=== PATIENT | female | born 1950 | race Caucasian/White ===

== ENCOUNTER 2021-10-05 09:48 | Inpatient (IN) | payer MEDICARE, OTHER ==
[~2021-10-05] VITALS: Ht 162.6 cm; Wt 63.5 kg
[2021-10-05 11:38] LABS: RED BLOOD COUNT 4.56 M/UL (4.00-5.10); WHITE BLOOD COUNT 10.1 K/UL (4.5-11.0)
[2021-10-05 12:04] LABS: BUN/CREATININE RATIO 29 (0-10)
[2021-10-05] MEDS ORDERED: ATORVASTATIN CA40 MG PO (16:04)
[2021-10-05] MEDS ORDERED: CETIRIZINE HCL10 MG PO (16:05)
[2021-10-05] MEDS ORDERED: FISH OIL 1,0001 EAC3 PO (16:06)
[2021-10-05] MEDS ORDERED: OMEPRAZOLE20 MG PO (16:07)
[2021-10-05] MEDS ORDERED: POTASSIUM CHLO20 ME1 PO (16:08)
[2021-10-05] MEDS ORDERED: TRAZODONE HCL50 MG PO (16:09)
[2021-10-05] MEDS ORDERED: GABAPENTIN800 MG PO (16:09)
[2021-10-05] MEDS ORDERED: HYDROCODON-ACE1 EAC2 PO (16:10)
[2021-10-05] MEDS ORDERED: LOSARTAN POTASS25 MG PO (16:11)
[2021-10-05] MEDS ORDERED: HYDROCHLOROTHIA25 MG PO (16:12)
[2021-10-05] MEDS ORDERED: TRADJENTA5 MG PO (16:12)
[2021-10-05] MEDS ORDERED: VITAMIN D21250 MCG PO (16:13)
[2021-10-05] MEDS ORDERED: METFORMIN HCL500 MG PO (16:14)
[2021-10-05] MEDS ORDERED: ADVAIR 250-501 EACH INH (16:29)
[2021-10-05] MEDS ORDERED: PROVENTIL HFA6.7 GM INH (16:30)
[2021-10-06 09:32] LABS: RED BLOOD COUNT 3.82 M/UL (4.00-5.10); WHITE BLOOD COUNT 7.4 K/UL (4.5-11.0)
[2021-10-06 09:33] LABS: HEMOGLOBIN 12.4 gm/dl (12.3-15.3)
[2021-10-06 09:54] LABS: BUN/CREATININE RATIO 29 (0-10)
[2021-10-07 02:13] LABS: HEMOGLOBIN 12.6 gm/dl (12.3-15.3); RED BLOOD COUNT 3.89 M/UL (4.00-5.10)
[2021-10-07 02:17] LABS: WHITE BLOOD COUNT 3.8 K/UL (4.5-11.0)
[2021-10-07 02:27] LABS: BUN/CREATININE RATIO 30 (0-10)
[2021-10-08 06:23] LABS: HEMOGLOBIN 13.3 gm/dl (12.3-15.3); RED BLOOD COUNT 4.11 M/UL (4.00-5.10)
[2021-10-08 06:48] LABS: BUN/CREATININE RATIO 34 (0-10)
== END 2021-10-08 16:14 | disposition home or self-care (01) | DRG 193 ==
LOC: ER1 09:48 → M/S 14:55 → EDBD 14:55 → CDU 14:55 → M/S 17:17
PROVIDERS: Internal Medicine; Nurse Practitioner; Physician Assistant; ADMIT Internal Medicine
DX: J10.1 Influenza due to other identified influenza virus with other respiratory manifestations (principal); J96.01 Acute respiratory failure with hypoxia; G93.41 Metabolic encephalopathy; E87.3 Alkalosis; I10 Essential (primary) hypertension; E78.5 Hyperlipidemia, unspecified; R51.9 Headache, unspecified; F03.90 Unspecified dementia, unspecified severity, without behavioral disturbance, psychotic disturbance, mood disturbance, and anxiety; E87.6 Hypokalemia; E11.65 Type 2 diabetes mellitus with hyperglycemia; Z20.822 Contact with and (suspected) exposure to COVID-19; H90.5 Unspecified sensorineural hearing loss; E86.0 Dehydration; F17.210 Nicotine dependence, cigarettes, uncomplicated; Z82.3 Family history of stroke; Z79.4 Long term (current) use of insulin; Z79.899 Other long term (current) drug therapy; Z79.84 Long term (current) use of oral hypoglycemic drugs
CPT/HCPCS: 0240U; 36415; 36600; 51702; 70450; 71045; 80048; 80053; 80076; 80307; 81001; 82009; 82140; 82150; 82550; 82553; 82803; 82962; 83036; 83605; 83690; 83735; 83880; 84132; 84439; 84443; 84484; 85025; 85027; 85610; 85730; 87040; 87086; 93005; 94640; 94664; 94760; 99285; G0480; J0692; Q9967

== ENCOUNTER 2021-10-12 12:49 | Observation (INO) | payer MEDICARE, OTHER ==
[~2021-10-12 12:49] MED LIST: ADVAIR 250-501 EACH INH; ATORVASTATIN CA40 MG PO; CETIRIZINE HCL10 MG PO; FISH OIL 1,0001 EAC3 PO; GABAPENTIN800 MG PO; HYDROCHLOROTHIA25 MG PO; HYDROCODON-ACE1 EAC2 PO; LOSARTAN POTASS25 MG PO; METFORMIN HCL500 MG PO; OMEPRAZOLE20 MG PO; POTASSIUM CHLO20 ME1 PO; PROVENTIL HFA6.7 GM INH; TRADJENTA5 MG PO; TRAZODONE HCL50 MG PO; VITAMIN D21250 MCG PO
[2021-10-12 15:27] LABS: RED BLOOD COUNT 4.59 M/UL (4.00-5.10); WHITE BLOOD COUNT 8.7 K/UL (4.5-11.0)
[2021-10-12 15:39] LABS: BUN/CREATININE RATIO 78 (0-10)
[2021-10-12 20:53] LABS: BUN/CREATININE RATIO 47 (0-10)
[2021-10-13 02:54] LABS: HEMOGLOBIN 13.4 gm/dl (12.3-15.3); RED BLOOD COUNT 4.11 M/UL (4.00-5.10); WHITE BLOOD COUNT 8.2 K/UL (4.5-11.0)
[2021-10-13 03:04] LABS: BUN/CREATININE RATIO 51 (0-10)
[2021-10-14 04:31] LABS: HEMOGLOBIN 13.5 gm/dl (12.3-15.3); RED BLOOD COUNT 4.19 M/UL (4.00-5.10)
[2021-10-14 05:09] LABS: BUN/CREATININE RATIO 32 (0-10)
[2021-10-14] MEDS ORDERED: CEFUROXIME250 MG PO (11:49)
[2021-10-14 15:30] LABS: BUN/CREATININE RATIO 24 (0-10)
[2021-10-14] MEDS ORDERED: MAGNESIUM400 M2 PO (16:20)
== END 2021-10-14 20:49 | disposition home health service (06) ==
LOC: ER1 12:49 → MED SURG 4 19:18 → CDU 19:18 → MED SURG 4 20:40
PROVIDERS: Preventive Medicine Occupational Medicine; Psychiatry & Neurology Neurology; ADMIT Internal Medicine
DX: G93.41 Metabolic encephalopathy (principal); E87.6 Hypokalemia; E86.0 Dehydration; N39.0 Urinary tract infection, site not specified; I10 Essential (primary) hypertension; E78.5 Hyperlipidemia, unspecified; E11.9 Type 2 diabetes mellitus without complications; E87.2 Acidosis; F17.210 Nicotine dependence, cigarettes, uncomplicated; Z20.822 Contact with and (suspected) exposure to COVID-19; Z79.84 Long term (current) use of oral hypoglycemic drugs; Z79.899 Other long term (current) drug therapy
CPT/HCPCS: 0240U; 36415; 36600; 70450; 70551; 71045; 80048; 80053; 80307; 81001; 82009; 82140; 82550; 82553; 82607; 82652; 82746; 82803; 82962; 83605; 83690; 83735; 83880; 84132; 84439; 84443; 84484; 85025; 85027; 85379; 85652; 86140; 87040; 87086; 94760; 96372; 96374; 96376; 97110-GP-CQ; 97116-GP-CQ; 97162; 97167; 97530; 99285; G0378; G0480; J0696; J1650; J3475; J3480; J3486; J7030; Q9967

== ENCOUNTER 2021-10-27 22:24 | Inpatient (IN) | payer MEDICARE, OTHER ==
[~2021-10-27] VITALS: Ht 170.2 cm; Wt 68.0 kg
[~2021-10-27 22:24] MED LIST changes: +CEFUROXIME250 MG PO; +MAGNESIUM400 M2 PO
[2021-10-27 23:35] LABS: RED BLOOD COUNT 4.25 M/UL (4.00-5.10)
[2021-10-28 06:57] LABS: HEMOGLOBIN 13.1 gm/dl (12.3-15.3); RED BLOOD COUNT 4.14 M/UL (4.00-5.10); WHITE BLOOD COUNT 17.6 K/UL (4.5-11.0)
[2021-10-28] MEDS ORDERED: IBU600 MG PO (10:10)
[2021-10-28] MEDS ORDERED: ALBUTEROL2.5 MG/3 M INH (10:11)
[2021-10-28] MEDS ORDERED: MACROBID 100 M100 M1 PO (10:11)
[2021-10-28] MEDS ORDERED: COZAAR25 MG PO (10:11)
[2021-10-28] MEDS ORDERED: TRAZODONE HCL50 MG PO (10:12)
[2021-10-28] MEDS ORDERED: TRADJENTA5 MG PO (10:12)
--- NOTE | 2021-10-28 16:40 | NUR ---
PT HAD NOT VOIDED TODAY, BLADDER SCANNED WITH 740ML READING. DR ANN CALLED ORDERED TO INSERT MELENDEZ. 16 FR INSERTED WITH 1250 DARK YELLOW URINE OUT. PT TOLERATED PROCEDURE WELL.
[2021-10-29 07:04] LABS: HEMOGLOBIN 14.1 gm/dl (12.3-15.3); RED BLOOD COUNT 4.37 M/UL (4.00-5.10)
[2021-10-29 07:07] LABS: WHITE BLOOD COUNT 10.9 K/UL (4.5-11.0)
[2021-10-29 07:55] LABS: BUN/CREATININE RATIO 52 (0-10)
[2021-10-30 07:04] LABS: HEMOGLOBIN 13.3 gm/dl (12.3-15.3); RED BLOOD COUNT 4.23 M/UL (4.00-5.10); WHITE BLOOD COUNT 8.3 K/UL (4.5-11.0)
[2021-10-30 07:39] LABS: BUN/CREATININE RATIO 32 (0-10)
[2021-10-31 05:19] LABS: HEMOGLOBIN 13.5 gm/dl (12.3-15.3); RED BLOOD COUNT 4.11 M/UL (4.00-5.10); WHITE BLOOD COUNT 7.4 K/UL (4.5-11.0)
[2021-10-31 07:02] LABS: BUN/CREATININE RATIO 26 (0-10)
[2021-11-01 06:47] LABS: HEMOGLOBIN 14.1 gm/dl (12.3-15.3); RED BLOOD COUNT 4.38 M/UL (4.00-5.10); WHITE BLOOD COUNT 8.6 K/UL (4.5-11.0)
[2021-11-01 07:45] LABS: BUN/CREATININE RATIO 34 (0-10)
[2021-11-02] MEDS ORDERED: MAGNESIUM400 M2 PO (16:48)
[2021-11-02] MEDS ORDERED: THERA-M CAPLET1 EACH PO (16:48)
== END 2021-11-03 15:24 | disposition home or self-care (01) | DRG 682 ==
LOC: ER1 22:24 → CDU 10-28 02:03 → MED SURG 4 10-28 02:03
PROVIDERS: Internal Medicine; Student in an Organized Health Care Education/Training Program; ADMIT Internal Medicine
DX: N17.9 Acute kidney failure, unspecified (principal); G93.41 Metabolic encephalopathy; I21.A1 Myocardial infarction type 2; M62.82 Rhabdomyolysis; N39.0 Urinary tract infection, site not specified; I50.32 Chronic diastolic (congestive) heart failure; E87.0 Hyperosmolality and hypernatremia; E11.9 Type 2 diabetes mellitus without complications; E87.6 Hypokalemia; E83.42 Hypomagnesemia; K52.9 Noninfective gastroenteritis and colitis, unspecified; F17.210 Nicotine dependence, cigarettes, uncomplicated; K29.80 Duodenitis without bleeding; I27.20 Pulmonary hypertension, unspecified; I11.0 Hypertensive heart disease with heart failure; R33.8 Other retention of urine; D75.89 Other specified diseases of blood and blood-forming organs; E86.0 Dehydration; I35.0 Nonrheumatic aortic (valve) stenosis; E78.5 Hyperlipidemia, unspecified; I10 Essential (primary) hypertension; F03.90 Unspecified dementia, unspecified severity, without behavioral disturbance, psychotic disturbance, mood disturbance, and anxiety; Z98.890 Other specified postprocedural states; Z82.3 Family history of stroke; Z79.899 Other long term (current) drug therapy; Z79.84 Long term (current) use of oral hypoglycemic drugs; Z79.82 Long term (current) use of aspirin
CPT/HCPCS: ECHO; 36415; 70450; 71045; 80048; 80053; 81001; 82550; 82553; 82962; 83605; 83735; 83880; 84100; 84132; 84484; 85025; 85027; 87040; 87086; 93005; 93306; 94640; 94664; 94760; 97161; 97166; 97530; 99285; J0360; J0696; J1644; J3475; J7030; Q9967

== ENCOUNTER 2021-11-17 05:57 | Inpatient (IN) | payer MEDICARE, OTHER ==
[~2021-11-17] VITALS: Ht 162.6 cm; Wt 56.7 kg
[~2021-11-17 05:57] MED LIST changes: +ALBUTEROL2.5 MG/3 M INH; +COZAAR25 MG PO; +IBU600 MG PO; +MACROBID 100 M100 M1 PO; +THERA-M CAPLET1 EACH PO
[2021-11-17 08:44] LABS: HEMOGLOBIN 14.5 gm/dl (12.3-15.3); RED BLOOD COUNT 4.43 M/UL (4.00-5.10); WHITE BLOOD COUNT 8.5 K/UL (4.5-11.0)
[2021-11-17 09:07] LABS: BUN/CREATININE RATIO 34 (0-10)
[2021-11-18 04:10] LABS: HEMOGLOBIN 13.1 gm/dl (12.3-15.3); RED BLOOD COUNT 4.06 M/UL (4.00-5.10); WHITE BLOOD COUNT 7.7 K/UL (4.5-11.0)
[2021-11-18 04:27] LABS: BUN/CREATININE RATIO 42 (0-10)
[2021-11-19 03:15] LABS: RED BLOOD COUNT 3.67 M/UL (4.00-5.10)
[2021-11-19 03:47] LABS: BUN/CREATININE RATIO 43 (0-10)
[2021-11-20 03:26] LABS: HEMOGLOBIN 10.9 gm/dl (12.3-15.3); RED BLOOD COUNT 3.35 M/UL (4.00-5.10); WHITE BLOOD COUNT 7.1 K/UL (4.5-11.0)
[2021-11-20 03:52] LABS: BUN/CREATININE RATIO 51 (0-10)
[2021-11-21 06:37] LABS: HEMOGLOBIN 11.4 gm/dl (12.3-15.3); RED BLOOD COUNT 3.5 M/UL (4.00-5.10); WHITE BLOOD COUNT 5.7 K/UL (4.5-11.0)
[2021-11-21 07:34] LABS: BUN/CREATININE RATIO 47 (0-10)
[2021-11-22 02:37] LABS: HEMOGLOBIN 11.4 gm/dl (12.3-15.3); RED BLOOD COUNT 3.53 M/UL (4.00-5.10); WHITE BLOOD COUNT 5.6 K/UL (4.5-11.0)
[2021-11-22 03:37] LABS: BUN/CREATININE RATIO 49 (0-10)
[2021-11-23 04:10] LABS: BUN/CREATININE RATIO 51 (0-10)
[2021-11-23 04:44] LABS: HEMOGLOBIN 12.1 gm/dl (12.3-15.3); RED BLOOD COUNT 3.73 M/UL (4.00-5.10); WHITE BLOOD COUNT 6.5 K/UL (4.5-11.0)
[2021-11-24 12:19] LABS: HEMOGLOBIN 13.1 gm/dl (12.3-15.3); RED BLOOD COUNT 4.04 M/UL (4.00-5.10)
[2021-11-24 12:21] LABS: WHITE BLOOD COUNT 8.4 K/UL (4.5-11.0)
[2021-11-24 12:46] LABS: BUN/CREATININE RATIO 60 (0-10)
[2021-11-25 03:34] LABS: HEMOGLOBIN 12.2 gm/dl (12.3-15.3); RED BLOOD COUNT 3.79 M/UL (4.00-5.10); WHITE BLOOD COUNT 7.9 K/UL (4.5-11.0)
[2021-11-25 04:06] LABS: BUN/CREATININE RATIO 72 (0-10)
[2021-11-25] MEDS ORDERED: ASPIRIN81 MG PO (11:19)
[2021-11-25] MEDS ORDERED: MIRALAX17 GM PO (11:38)
[2021-11-25] MEDS ORDERED: ARICEPT5 MG PO (11:38)
[2021-11-25] MEDS ORDERED: SENNA PLUS 8.61 EACH PO (11:38)
[2021-11-25] MEDS ORDERED: ENOXAPARIN40 MG/0.4 SC ×2 (11:38→11:54)
[2021-11-25] MEDS ORDERED: ROXICODONE TAB 55 MG PO (11:38)
[2021-11-25] MEDS ORDERED: ACETAMINOPHEN500 MG PO (11:38)
[2021-11-25] MEDS ORDERED: OMNICEF 300 MG300 MG PO (11:38)
[2021-11-25] MEDS ORDERED: MACROBID 100 M100 M1 PO (11:45)
[2021-11-25] MEDS ORDERED: MEGACE 400400 MG/10 PO (11:49)
[2021-11-25] MEDS ORDERED: HYDRALAZINE HCL25 MG PO ×2 (12:04→12:09)
[2021-11-25] MEDS ORDERED: ZOFRAN 4 MG TAB4 MG PO (12:40)
== END 2021-11-25 17:59 | disposition home or self-care (01) | DRG 480 ==
LOC: ER1 05:57 → M/S 08:21 → CDU 08:21 → M/S 18:14
PROVIDERS: Emergency Medicine; Internal Medicine; Nurse Practitioner Family; Orthopaedic Surgery; Physician Assistant; Physician Assistant Medical; ADMIT Internal Medicine
PROC: 0QS704Z Reposition Left Upper Femur with Internal Fixation Device, Open Approach (ICD-10-PCS; principal; 2021-11-18 16:15)
DX: S72.142A Displaced intertrochanteric fracture of left femur, initial encounter for closed fracture (principal); G92.8 Other toxic encephalopathy; N39.0 Urinary tract infection, site not specified; I50.32 Chronic diastolic (congestive) heart failure; Z20.822 Contact with and (suspected) exposure to COVID-19; I35.0 Nonrheumatic aortic (valve) stenosis; I27.20 Pulmonary hypertension, unspecified; E78.5 Hyperlipidemia, unspecified; K76.0 Fatty (change of) liver, not elsewhere classified; E87.6 Hypokalemia; E83.42 Hypomagnesemia; I11.0 Hypertensive heart disease with heart failure; F17.210 Nicotine dependence, cigarettes, uncomplicated; W18.30XA Fall on same level, unspecified, initial encounter; E11.9 Type 2 diabetes mellitus without complications; R29.810 Facial weakness; T42.75XA Adverse effect of unspecified antiepileptic and sedative-hypnotic drugs, initial encounter; F03.90 Unspecified dementia, unspecified severity, without behavioral disturbance, psychotic disturbance, mood disturbance, and anxiety; Z79.01 Long term (current) use of anticoagulants; Z79.82 Long term (current) use of aspirin; Z79.4 Long term (current) use of insulin; Z82.3 Family history of stroke; Z71.6 Tobacco abuse counseling
CPT/HCPCS: 36415; 36600; 70450; 70551; 71045; 73502; 76000; 80048; 80053; 81001; 82803; 82962; 83735; 84132; 85025; 85027; 85610; 85730; 86850; 86900; 86901; 87086; 92526; 92610; 93005; 93880; 94640; 94664; 94760; 96372; 96374; 96375; 96376; 97110; 97116; 97116-GP-CQ; 97161; 97165; 97530; 97530-GP-CQ; 99285; C1713; J0690; J0696; J1100; J1650; J2001; J2250; J2270; J2405; J2704; J2795; J3475; J3480; U0002